=== PATIENT | female | born 1975 | race Hispanic/Latino ===

== ENCOUNTER 2022-11-10 16:58 | Emergency (ER) | payer MEDICARE, OTHER ==
[~2022-11-10] VITALS: Ht 149.9 cm; Wt 80.3 kg
[2022-11-10] MEDS ORDERED: KETOROLAC 30MG VIAL (30MG/ML) IVP ONE (18:30)
[2022-11-10] MEDS ORDERED: GABAPENTIN 300 MG CAPSULE PO SCH (18:30)
[2022-11-10] MEDS ORDERED: SOLU-MEDROL 125MG VIAL IVP ONE (18:30)
== END 2022-11-10 19:01 | disposition home or self-care (01) ==
LOC: EDH 16:58
DX: M79.7 Fibromyalgia (principal); Z76.5 Malingerer [conscious simulation]; M32.9 Systemic lupus erythematosus, unspecified; Z79.52 Long term (current) use of systemic steroids
CPT/HCPCS: 71045; 93005